=== PATIENT | female | born 1960 | race African-American/Black ===

== ENCOUNTER 2018-01-28 09:33 | Outpatient (CLI) | payer OTHER ==
--- NOTE | 2018-01-28 17:05 | RAD ---
LEFT THUMB THREE VIEWS: 01/28/18 No acute fracture or joint abnormality was seen. A tiny nida of bone on the palmar aspect of the IP joint of the thumb is most likely an accessory ossicle. Less likely, it is an old injury. IMPRESSION: No significant findings. POS: HOME
== END 2018-01-28 09:34 | disposition home or self-care (01) ==
LOC: BURRAD 09:33
PROVIDERS: ATTEND Family Medicine
DX: M79.645 Pain in left finger(s) (principal)

== ENCOUNTER 2018-03-14 16:07 | Emergency (ER) | payer OTHER ==
[2018-03-14] MEDS ORDERED: Ketorolac Tromethamine 30 MG/ML VIAL ONE (16:36)
[2018-03-14] MEDS ORDERED: Ondansetron HCl/PF 4 MG/2 ML Vial ONE (16:36)
[2018-03-14 16:42] LABS: ALT (SGPT) 19 U/L (8-55); AST (SGOT) 16 U/L (5-34); Albumin 4.8 g/dL (3.5-5.0); Alkaline Phosphatase 82 U/L (40-150); Anion Gap 16 mmol/L (10-20); BUN (Urea Nitrogen) 33 mg/dL (9.8-20.1); Bilirubin, Total 0.4 mg/dL (0.2-1.2); Calc. Creatinine Clearance 0 mL/min (70-130); Calcium 9.9 mg/dL (7.8-10.44); Carbon Dioxide 25 mmol/L (22-29); Chloride 102 mmol/L (98-107); Estimated GFR-MDRD 43; Globulin 4.1 g/dL (2.4-3.5); Glucose 90 mg/dL (70-105); Lipase 34 U/L (8-78); Potassium 4.1 mmol/L (3.5-5.1); Protein, Total 8.9 g/dL (6.0-8.3); Sodium 139 mmol/L (136-145)
[2018-03-14 16:49] LABS: Band 2 % (5-11); Hemoglobin 14.1 g/dL (12.0-16.0); Lymphocytes 31 % (21-51); MDiff Complete? YES; Mean Corpuscular Hemoglobin 26.9 pg (27.0-31.0); Mean Platelet Volume 6.1 fL (7.4-10.4); Monocytes 8 % (0-10); Neutrophil 58 % (42-75); Platelet Count 292 thou/uL (130-400); RBC Distribution Width 12.5 % (11.5-14.5); Red Blood Cell (RBC) Count 5.25 mill/uL (4.20-5.40); Small Platelets SLIGHT; White Blood Cell (WBC) Count 9.7 thou/uL (4.8-10.8)
[2018-03-14 17:01] LABS: Bilirubin Negative (Negative); Blood, Urine Small (Negative); Clarity Slightly Cloudy (Clear); Glucose, Urine (Dipstick) Negative (Negative); Leukocyte Negative (Negative); Nitrite Negative (Negative); Protein, Urine (Dipstick) Negative (Neg-Trace); Urobilinogen 0.2 mg/dL (0.2-1.0); pH, Urine 5.5 (5.0-9.0)
[2018-03-14 17:05] LABS: Bacteria/HPF 1+ HPF (None Seen); Crystals/HPF None Seen HPF (Negative); Hyaline Casts/LPF NONE SEEN LPF (0-3 Hyaline); Other Casts/LPF None Seen LPF (0-3 Hyaline); Oval Fat Bodies/HPF None Seen HPF (None Seen); RBC/HPF 0-3 HPF (0-3); Renal Epithelial None Seen HPF (0-3); Sperm/HPF None Seen HPF (None Seen); Squamous Epithelial None Seen HPF (0-3); Transitional Epithelial NONE SEEN HPF (0-3); Trichomonas/HPF None Seen HPF (None Seen); WBC/HPF 0-3 HPF (0-3); Yeast-All Forms None Seen HPF (None Seen)
--- NOTE | 2018-03-14 21:16 | CT ---
CT ABDOMEN AND PELVIS: WITHOUT CONTRAST: 03/14/[address] of the abdomen and pelvis was performed for evaluation of right sided pain. IV contrast was deferred because the patient's creatinine was slightly high and her GFR was slightly low for age. Ax ial slices were acquired, then coronal and sagittal reconstructions were done. The lung bases are clear. the liver, spleen, pancreas, gallbladder, and abdominal aorta showed no acu te findings. The left adrenal gland is somewhat more nodular than the right, but it was difficult to measure a discrete nodule. There is a hyperdense area in the periphery of the right kidney that is mo st likely a hemorrhagic cyst. I doubt its significance. There is no sign of aortic aneurysm. The bowel shows no distention, wall thickening, or inflammatory changes around it. The appendix appea rs normal. No free air or free fluid was seen. CT of the pelvis showed no adnexal masses, fluid collections, or inflammatory changes. IMPRESSION: No significant abdominal or pelvic findings to explain the patient's presentation. POS: HOME
== END 2018-03-14 18:25 | disposition home or self-care (01) ==
LOC: BURERS 16:07
DX: K52.9 Noninfective gastroenteritis and colitis, unspecified (principal); I10 Essential (primary) hypertension; E11.9 Type 2 diabetes mellitus without complications; F17.210 Nicotine dependence, cigarettes, uncomplicated; Z79.84 Long term (current) use of oral hypoglycemic drugs; Z87.891 Personal history of nicotine dependence; Z79.82 Long term (current) use of aspirin; Z79.899 Other long term (current) drug therapy
CPT/HCPCS: 74176; 80053; 81003; 81015; 83690; 85025; 96361; 96374; 96375; J1885; J2405

== ENCOUNTER 2019-09-15 17:11 | Outpatient (CLI) | payer OTHER ==
--- NOTE | 2019-09-15 20:27 | RAD ---
LEFT KNEE TWO VIEWS: 09/15/19 No fracture or larger joint effusion was seen. No bony anomaly of concern was encountered. The joint space appears normal. IMPRESSION: No acute finding. POS: HOME
== END 2019-09-15 17:12 | disposition home or self-care (01) ==
LOC: BURRAD 17:11
PROVIDERS: ATTEND Family Medicine
DX: M25.562 Pain in left knee (principal)

== ENCOUNTER 2020-02-04 11:48 | Outpatient (CLI) | payer OTHER ==
--- NOTE | 2020-02-04 17:01 | RAD ---
ACUTE ABDOMEN SERIES: 02/04/20 Supine and erect films show no free air beneath the diaphragm. The gas pattern is unremarkable showin g no distended loops to suggest obstruction. Pelvic calcifications are most likely phleboliths. The t ip of the right lobe of the liver overhangs the iliac crest, but this may be more due to the shape of the liver than actual enlargement. The chest film in the series is compared with a 11/14/17 study. Th e heart seems slightly larger today but is probably upper limits of normal in size. There is no vascu lar congestion or edema. The lungs are clear. The trachea deviates slightly to the right at the thora cic inlet but this may be partially due to the patient being turned slightly. IMPRESSION: No definite acute findings. Cardiac size is borderline normal but slightly larger than in 2018. POS: HOME
== END 2020-02-04 11:49 | disposition home or self-care (01) ==
LOC: BURRAD 11:48
PROVIDERS: ATTEND Family Medicine
DX: R10.9 Unspecified abdominal pain (principal)
CPT/HCPCS: 74022

== ENCOUNTER 2020-04-13 20:24 | Emergency (ER) | payer OTHER ==
[2020-04-13] MEDS ORDERED: Ibuprofen 800 MG TAB ONE (20:45)
[2020-04-13] MEDS ORDERED: HYDROcodone/Acetaminophen 5/325 mg Tablet ONE (20:45)
--- NOTE | 2020-04-14 09:27 | RAD ---
RIGHT FOOT FOUR VIEWS: 04/13/20 There is a fracture at the base of the middle phalanx of the fifth toe near the PIP joint with little displacement. I know there were questions regarding the proximal phalanx of the fourth toe, but I ca nnot confirm a fracture here at this time. The remainder of the foot appeared intact. A calcaneal spu r was noted. IMPRESSION: Acute fracture of the middle phalanx of the fifth toe at the PIP joint. POS: HOME
== END 2020-04-13 21:22 | disposition home or self-care (01) ==
LOC: BURERS 20:24
DX: S92.524A Nondisplaced fracture of middle phalanx of right lesser toe(s), initial encounter for closed fracture (principal); I10 Essential (primary) hypertension; E11.9 Type 2 diabetes mellitus without complications; F17.210 Nicotine dependence, cigarettes, uncomplicated; Z79.899 Other long term (current) drug therapy; Z79.84 Long term (current) use of oral hypoglycemic drugs; Z79.82 Long term (current) use of aspirin; W22.8XXA Striking against or struck by other objects, initial encounter